=== PATIENT | male | born 1940 | race Hispanic/Latino ===

== ENCOUNTER → 2020-01-22 | Outpatient (CLI) | payer OTHER | END | disposition home or self-care (01) | LOC: RAH 10:56 | PROVIDERS: ATTEND Internal Medicine | DX: Z13.6 Encounter for screening for cardiovascular disorders (principal) | CPT/HCPCS: 75571 ==

== ENCOUNTER → 2020-02-25 | Outpatient (CLI) | payer MEDICARE | END | disposition home or self-care (01) | LOC: SHCH 15:14 | PROVIDERS: ATTEND Internal Medicine Cardiovascular Disease | DX: I48.20 Chronic atrial fibrillation, unspecified (principal) | CPT/HCPCS: 93306; 93356 ==

== ENCOUNTER → 2020-02-27 | Outpatient (CLI) | payer MEDICARE ==
[~2020-02-27] MED LIST: REGADENOSON 0.4 MG/5 ML PF SYG IVP SCH
== END | disposition home or self-care (01) ==
LOC: SHCH 07:57
PROVIDERS: ATTEND Internal Medicine Cardiovascular Disease
DX: I20.9 Angina pectoris, unspecified (principal)
CPT/HCPCS: 78452; 93017; 96374; A9500 ×2; J2785

== ENCOUNTER 2020-09-30 00:19 | Observation (INO) | payer MEDICARE ==
[~2020-09-30] VITALS: Ht 175.3 cm; Wt 78.2 kg
[2020-09-30] MEDS ORDERED: DILTIAZEM HCL 5 MG/ML 10 ML VIAL IV ONE (01:03)
[2020-09-30 01:08] LABS: CREATININE 1.3 mg/dL (0.5-1.5); POTASSIUM 3.7 mmol/L (3.5-5.1)
[2020-09-30 01:11] LABS: BASOPHILS % (AUTO) 0.3 % (0.0-5.0); EOSINOPHILS % (AUTO) 0.1 % (0.0-8.0); HEMATOCRIT 41.6 % (42-54); LYMPHOCYTES % (AUTO) 6.7 % (21.0-51.0); MEAN CORPUSCULAR HGB CONC 34.4 g/dL (32.0-36.0); MEAN CORPUSCULAR VOLUME 96.1 fL (79-99); MONOCYTES % (AUTO) 9.1 % (3.0-13.0); NEUTROPHILS % (AUTO) 83.4 % (40.0-77.0); PLATELET COUNT (AUTO) 222 K/uL (130-400); RED BLOOD CELL COUNT(AUTO) 4.33 MIL/uL (4.50-6.20); RED CELL DISTRIBUTION WIDTH 12.6 % (11.0-15.5); WHITE BLOOD COUNT (AUTO) 17.4 K/uL (4.8-10.8)
[2020-09-30 01:18] LABS: INR 1.06 (0.85-1.15); PARTIAL THROMBOPLASTIN TIME 27.5 SEC (26.3-35.5); PROTHROMBIN TIME 11.4 SEC (9.6-11.6)
[2020-09-30] MEDS ORDERED: METOPROLOL TARTRATE 50 MG TAB ONE ×2 (01:58→08:01)
[2020-09-30] MEDS ORDERED: DILTIAZEM HCL 125 MG/25 ML VIAL IV ONE (02:12)
[2020-09-30] MEDS ORDERED: SODIUM CHLORIDE 0.9% 100 ML IV ONE (02:12)
[2020-09-30] MEDS ORDERED: LACTULOSE 20 GM/30 ML UDCUP PO PRN ×2 (02:45→08:45)
[2020-09-30] MEDS ORDERED: ZOLPIDEM TARTRATE 5 MG TAB PO PRN (02:45)
[2020-09-30] MEDS ORDERED: ACETAMINOPHEN-CODEINE 300/30MG TAB PO PRN ×2 (02:45)
[2020-09-30] MEDS ORDERED: ONDANSETRON HCL 4 MG/2 ML VIAL IV PRN ×2 (02:45→08:45)
[2020-09-30] MEDS ORDERED: HYDRALAZINE HCL 20 MG/ML VIAL IV PRN (02:45)
[2020-09-30] MEDS ORDERED: DIPHENHYDRAMINE HCL 25 MG CAPSULE PO PRN ×2 (02:45→08:45)
[2020-09-30] MEDS ORDERED: NITROGLYCERIN 0.4 MG SL TAB SL PRN (02:45)
[2020-09-30] MEDS ORDERED: ACETAMINOPHEN 325 MG TAB PO PRN ×4 (02:45→08:45)
[2020-09-30] MEDS ORDERED: DILTIAZEM HCL 125 MG/25 ML 125 MG in SODIUM CHLORIDE 0.9% 100 ML IV SCH (02:45)
[2020-09-30] MEDS ORDERED: GUAIFENESIN-DM 200/20 MG 10 ML PO PRN (02:45)
[2020-09-30] MEDS ORDERED: MAG HYDROX/AL HYDROX/SIMETH ES 30 ML SUSP UDCUP PO PRN ×2 (02:45→08:45)
[2020-09-30] MEDS ORDERED: ZOSYN 3.375GM+NS 50ML 50 ML IV ONE (03:03)
[2020-09-30] MEDS ORDERED: PHARMACY COMMUNICATION MISC SCH (04:00)
[2020-09-30] MEDS ORDERED: ZOSYN 3.375GM+NS 50ML 50 ML IV SCH (05:00)
[2020-09-30 06:37] LABS: TROPONIN I 0.12 ng/mL (0.00-0.06)
[2020-09-30] MEDS ORDERED: CEFTRIAXONE SODIUM 1 GM ONE (08:01)
[2020-09-30] MEDS ORDERED: SODIUM CHLORIDE 0.9% 1000ML 1,000 ML IV ONE (08:01)
[2020-09-30] MEDS ORDERED: SODIUM CHLORIDE 0.9% 1000ML 1,000 ML IV SCH (08:45)
[2020-09-30] MEDS ORDERED: POTASSIUM CHLORIDE 20MEQ/100ML 100 ML IV PRN ×2 (08:45)
[2020-09-30] MEDS ORDERED: LIDOCAINE HCL-MPF 1% 2ML VIAL IJ PRN ×2 (08:45)
[2020-09-30] MEDS ORDERED: POTASSIUM CHLORIDE 10% ELIXIR 20 MEQ/15 ML UDCUP PO PRN (08:45)
[2020-09-30] MEDS ORDERED: DiphenhydrAMINE HCL 50 MG/ML VIAL IV PRN (08:45)
[2020-09-30] MEDS ORDERED: POTASSIUM CHLORIDE 20 MEQ ERTAB PO PRN (08:45)
[2020-09-30] MEDS ORDERED: ENOXAPARIN SODIUM 80 MG/0.8 ML SQ SCH (09:00)
[2020-09-30] MEDS: METOPROLOL TARTRATE 25 MG TAB PO SCH ×2 (09:00→20:26)
[2020-09-30] MEDS ORDERED: ENOXAPARIN SODIUM 40 MG/0.4 ML SYRINGE SQ SCH (09:00)
[2020-09-30] MEDS: PANTOPRAZOLE SODIUM 40 MG TABLET.DR PO SCH (09:00)
[2020-09-30] MEDS ORDERED: FAMOTIDINE 20MG TAB 20 MG TAB PO SCH (09:00)
[2020-09-30] MEDS ORDERED: ATOR40TA71 PO (09:23)
[2020-09-30] MEDS ORDERED: METO50TA18 PO (09:23)
[2020-09-30] MEDS ORDERED: APIX5TAB PO (09:23)
[2020-09-30] MEDS: CEFTRIAXONE SODIUM 1 GM IVP SCH (09:30)
[2020-09-30] MEDS: ATORVASTATIN CALCIUM 40 MG TABLET PO SCH (09:45)
[2020-09-30 11:02] LABS: TROPONIN I 0.23 ng/mL (0.00-0.06)
[2020-09-30 15:50] VITALS: BP 134/70
--- NOTE | 2020-09-30 16:00 | NUR ---
ARRIVAL TO FLOOR AAOX3 DENIES CP DENIES SOB DENIES NV ARRIVED WITH ORDERS. TELE PACK PLACED ON PATIENT. RESTING IN BED. CALL LIGHT WITHIN REACH.
--- NOTE | 2020-09-30 16:15 | NUR ---
NOTED BANDAIDS TO RIGHT HANDS PATIENT STATES HE PUT THEM ON HIMSELF DAYS AGO, DOESN'T WANT TO TAKE THEM OFF, STATES THEY ARE SCABBED.
--- NOTE | 2020-09-30 16:30 | NUR ---
2D ECHO AT BEDSIDE
[2020-09-30 19:08] LABS: TROPONIN I 0.21 ng/mL (0.00-0.06)
[2020-09-30 19:30] VITALS: BP 131/65
[2020-09-30] MEDS: APIXABAN 5 MG TABLET PO SCH (20:25)
[2020-09-30 23:40] VITALS: BP 135/74
[2020-10-01 03:50] VITALS: BP 144/69
[2020-10-01 06:21] LABS: HEMATOCRIT 38.6 % (42-54); MEAN CORPUSCULAR HEMOGLOBIN 32.3 pg (27.0-33.0); MEAN CORPUSCULAR HGB CONC 33.4 g/dL (32.0-36.0); MEAN CORPUSCULAR VOLUME 96.7 fL (79-99); RED BLOOD CELL COUNT(AUTO) 3.99 MIL/uL (4.50-6.20); RED CELL DISTRIBUTION WIDTH 13.1 % (11.0-15.5); WHITE BLOOD COUNT (AUTO) 13.5 K/uL (4.8-10.8)
[2020-10-01 06:35] LABS: CREATININE 1.2 mg/dL (0.5-1.5); POTASSIUM 3.9 mmol/L (3.5-5.1)
[2020-10-01 08:00] VITALS: BP 151/83
[2020-10-01] MEDS: PANTOPRAZOLE SODIUM 40 MG TABLET.DR PO SCH (08:16)
[2020-10-01] MEDS: ATORVASTATIN CALCIUM 40 MG TABLET PO SCH (08:16)
[2020-10-01] MEDS: METOPROLOL TARTRATE 25 MG TAB PO SCH (08:16)
[2020-10-01] MEDS: APIXABAN 5 MG TABLET PO SCH (08:16)
[2020-10-01] MEDS: CEFTRIAXONE SODIUM 1 GM IVP SCH (08:17)
[2020-10-01] MEDS ORDERED: CEPH500C2 PO (08:44)
[2020-10-01] MEDS ORDERED: METO50TA18 PO (08:44)
--- NOTE | 2020-10-01 11:58 | NUR ---
CM NOTE PATIENT DISCHARGED HOME, GONE, UNABLE TO PROVIDER MIJARES LETTER.
--- NOTE | 2020-10-01 13:00 | NUR ---
DISCHARGE INSTRUCTIONS GIVEN, PIV REMOVED AND INTACT, DISCHARGED HOME TO FAMILY VEHICLE VIA WHEELCHAIR.
== END 2020-10-01 11:22 | disposition home or self-care (01) ==
LOC: EDH 00:19 → EDHIP 02:38 → OBSVTOIN 02:38 → INTOOBSV 02:38 → OBSVTOIN 08:41 → 4CH 16:01
PROVIDERS: ADMIT Internal Medicine; ATTEND Internal Medicine
DX: L03.113 Cellulitis of right upper limb (principal); I48.0 Paroxysmal atrial fibrillation; R07.9 Chest pain, unspecified; I25.10 Atherosclerotic heart disease of native coronary artery without angina pectoris; I21.A1 Myocardial infarction type 2; G47.33 Obstructive sleep apnea (adult) (pediatric); E78.2 Mixed hyperlipidemia; W18.39XA Other fall on same level, initial encounter; Y93.89 Activity, other specified; Y92.89 Other specified places as the place of occurrence of the external cause; Y99.8 Other external cause status; Z85.46 Personal history of malignant neoplasm of prostate; Z79.01 Long term (current) use of anticoagulants
CPT/HCPCS: 36415 ×2; 70450; 71045; 73110; 73130; 80048 ×2; 82550 ×4; 83874 ×3; 84443; 84484 ×4; 85025; 85027; 85610; 85651; 85730; 93005 ×3; 93306; 93356; 96374; 99291; 99292; G0378 ×3; J0696 ×2; J2543; J3490 ×2; J7030

== ENCOUNTER 2021-10-08 09:44 | Observation (INO) | payer MEDICARE ==
[~2021-10-08] VITALS: Ht 165.1 cm; Wt 4.1 kg
[~2021-10-08 09:44] MED LIST changes: +APIX5TAB PO; +ATOR40TA71 PO; +CEPH500C2 PO; +METO50TA18 PO; -REGADENOSON 0.4 MG/5 ML PF SYG IVP SCH
[2021-10-08 11:59] LABS: BASOPHILS % (AUTO) 0.5 % (0.0-5.0); EOSINOPHILS % (AUTO) 0.4 % (0.0-8.0); HEMATOCRIT 44.5 % (42-54); LYMPHOCYTES % (AUTO) 8.8 % (21.0-51.0); MEAN CORPUSCULAR HEMOGLOBIN 32.9 pg (27.0-33.0); MEAN CORPUSCULAR HGB CONC 33.9 g/dL (32.0-36.0); MEAN CORPUSCULAR VOLUME 96.9 fL (79-99); NEUTROPHILS % (AUTO) 83.8 % (40.0-77.0); PLATELET COUNT (AUTO) 224 K/uL (130-400); RED BLOOD CELL COUNT(AUTO) 4.59 MIL/uL (4.50-6.20); RED CELL DISTRIBUTION WIDTH 13.2 % (11.0-15.5); WHITE BLOOD COUNT (AUTO) 15.1 K/uL (4.8-10.8)
[2021-10-08 12:13] LABS: INR 1.09 (0.85-1.15); PROTHROMBIN TIME 11.8 SEC (9.6-11.6)
[2021-10-08 12:14] LABS: CREATININE 1.1 mg/dL (0.5-1.5); POTASSIUM 5.7 mmol/L (3.5-5.1)
[2021-10-08 12:19] LABS: ALBUMIN 3.8 g/dL (3.5-5.0); BILIRUBIN,TOTAL 0.8 mg/dL (0.2-1.0); MAGNESIUM 2.5 mg/dL (1.80-2.40); TOTAL PROTEIN, SERUM 7.6 g/dL (6.0-8.3)
[2021-10-08 14:11] LABS: APPEARANCE,URINE Clear (CLEAR); BILIRUBIN,URINE Negative (NEGATIVE); COLOR,URINE Yellow (YELLOW); GLUCOSE, URINE (UA) Negative (NEGATIVE); KETONES,URINE Negative (NEGATIVE); LEUKOCYTE ESTERASE ,URINE Negative (NEGATIVE); NITRATE,URINE Negative (NEGATIVE); OCCULT BLOOD,URINE Negative (NEGATIVE); PH,URINE >=9.0 (5.0-8.0); PROTEIN,URINE Negative (NEGATIVE); UROBILINOGEN,URINE 0.2 mg/dL (0.2-1.0)
[2021-10-08 14:38] LABS: BACTERIA,URINE Rare /HPF (None Seen); RBC,URINE 0-1 /HPF (0-1); SQUAMOUS EPITHELIAL CELL,UR Rare /HPF (0-2)
[2021-10-08] MEDS ORDERED: BACITRACIN 28.4 GM OINT TP SCH (16:30)
[2021-10-08] MEDS ORDERED: ONDANSETRON ODT 4MG TAB PO PRN (16:30)
[2021-10-08] MEDS ORDERED: ACETAMINOPHEN 325 MG TAB PO PRN ×3 (16:30→21:00)
[2021-10-08] MEDS: 0.9%NACL 1000ML 1,000 ML IV SCH ×2 (17:10→23:28)
[2021-10-08] MEDS ORDERED: ATOR20TA65 PO (20:57)
[2021-10-08] MEDS ORDERED: APIX5TAB PO (20:57)
[2021-10-08] MEDS ORDERED: LOSA25TA41 PO (20:57)
[2021-10-08] MEDS ORDERED: METO25TA6 PO (20:57)
[2021-10-08] MEDS ORDERED: DiphenhydrAMINE HCL 50 MG/ML VIAL IV PRN (21:00)
[2021-10-08] MEDS ORDERED: ONDANSETRON 4MG INJ IV PRN (21:00)
[2021-10-08] MEDS ORDERED: LACTULOSE 20 GM/30 ML UDCUP PO PRN (21:00)
[2021-10-08] MEDS ORDERED: MAG/ALUM/SIMETH 30 ML UDCUP PO PRN (21:00)
[2021-10-08] MEDS ORDERED: DIPHENHYDRAMINE HCL 25 MG CAPSULE PO PRN (21:00)
[2021-10-08 23:00] VITALS: BP 155/69
[2021-10-09 04:00] VITALS: BP 126/68
[2021-10-09 05:30] LABS: HEMATOCRIT 39.8 % (42-54); MEAN CORPUSCULAR HGB CONC 33.2 g/dL (32.0-36.0); MEAN CORPUSCULAR VOLUME 96.4 fL (79-99); RED BLOOD CELL COUNT(AUTO) 4.13 MIL/uL (4.50-6.20); RED CELL DISTRIBUTION WIDTH 13.3 % (11.0-15.5); WHITE BLOOD COUNT (AUTO) 10.2 K/uL (4.8-10.8)
[2021-10-09 05:45] LABS: CREATININE 1.1 mg/dL (0.5-1.5); POTASSIUM 4.3 mmol/L (3.5-5.1)
[2021-10-09 08:00] VITALS: BP 117/69
[2021-10-09] MEDS ORDERED: APIXABAN 5 MG TABLET PO SCH (09:00)
[2021-10-09] MEDS ORDERED: METOPROLOL TARTRATE 25 MG TAB PO SCH (09:00)
[2021-10-09] MEDS ORDERED: FAMOTIDINE 20MG TAB PO SCH (09:00)
[2021-10-09] MEDS ORDERED: LOSA25TA41 PO (10:19)
[2021-10-09] MEDS ORDERED: METO25TA6 PO (10:19)
[2021-10-09 12:00] VITALS: BP 161/71
[2021-10-09] MEDS ORDERED: ATORVASTATIN 20 MG TABLET PO SCH (21:00)
== END 2021-10-09 15:30 | disposition home or self-care (01) ==
LOC: EDH 09:44 → EDHIP 15:10 → 3DH 23:06
PROVIDERS: ADMIT Internal Medicine; ATTEND Internal Medicine
DX: S00.81XA Abrasion of other part of head, initial encounter (principal); R55 Syncope and collapse; I25.10 Atherosclerotic heart disease of native coronary artery without angina pectoris; I48.0 Paroxysmal atrial fibrillation; D68.69 Other thrombophilia; I12.9 Hypertensive chronic kidney disease with stage 1 through stage 4 chronic kidney disease, or unspecified chronic kidney disease; N18.2 Chronic kidney disease, stage 2 (mild); C61 Malignant neoplasm of prostate; E78.5 Hyperlipidemia, unspecified; H91.90 Unspecified hearing loss, unspecified ear; G47.33 Obstructive sleep apnea (adult) (pediatric); M47.812 Spondylosis without myelopathy or radiculopathy, cervical region; M47.815 Spondylosis without myelopathy or radiculopathy, thoracolumbar region; K42.9 Umbilical hernia without obstruction or gangrene; K57.90 Diverticulosis of intestine, part unspecified, without perforation or abscess without bleeding; V18.4XXA Pedal cycle driver injured in noncollision transport accident in traffic accident, initial encounter; Y93.55 Activity, bike riding; Y92.410 Unspecified street and highway as the place of occurrence of the external cause; Z79.899 Other long term (current) drug therapy; Z79.01 Long term (current) use of anticoagulants; Z89.021 Acquired absence of right finger(s)
CPT/HCPCS: 36415 ×2; 70460; 71250; 72125; 74176; 80048; 80053; 81001; 81003; 82550; 83735; 84484; 85025; 85027; 85610; 85730; 93005; 96360; 96361 ×2; 97039; 97116; 99285; G0378 ×18

== ENCOUNTER 2022-03-11 12:10 | Emergency (ER) | payer MEDICARE ==
[~2022-03-11] VITALS: Ht 175.3 cm; Wt 72.6 kg
[~2022-03-11 12:10] MED LIST changes: +ATOR20TA65 PO; -ATOR40TA71 PO; -CEPH500C2 PO; +LOSA25TA41 PO; +METO25TA6 PO; -METO50TA18 PO
[2022-03-11 12:28] LABS: EOSINOPHILS % (AUTO) 1.4 % (0.0-8.0); HEMATOCRIT 44.7 % (42-54); LYMPHOCYTES % (AUTO) 28.4 % (21.0-51.0); MEAN CORPUSCULAR HEMOGLOBIN 32.2 pg (27.0-33.0); MEAN CORPUSCULAR HGB CONC 33.3 g/dL (32.0-36.0); MEAN CORPUSCULAR VOLUME 96.5 fL (79-99); MONOCYTES % (AUTO) 8.5 % (3.0-13.0); NEUTROPHILS % (AUTO) 60.4 % (40.0-77.0); PLATELET COUNT (AUTO) 256 K/uL (130-400); RED BLOOD CELL COUNT(AUTO) 4.63 MIL/uL (4.50-6.20); RED CELL DISTRIBUTION WIDTH 12.8 % (11.0-15.5); WHITE BLOOD COUNT (AUTO) 12.4 K/uL (4.8-10.8)
[2022-03-11] MEDS ORDERED: ONDANSETRON 4MG INJ IVP ONE (12:30)
[2022-03-11] MEDS ORDERED: 0.9%NACL 1000ML 1,000 ML IV ONE (12:30)
[2022-03-11 12:35] LABS: CREATININE 1.5 mg/dL (0.5-1.5); POTASSIUM 4.4 mmol/L (3.5-5.1)
[2022-03-11 12:39] LABS: ALBUMIN 3.5 g/dL (3.5-5.0); BILIRUBIN,TOTAL 0.9 mg/dL (0.2-1.0); TOTAL PROTEIN, SERUM 6.8 g/dL (6.0-8.3)
[2022-03-11 12:40] LABS: B-TYPE NATRIURETIC PEPTIDE 185 pg/mL (0-100)
[2022-03-11] MEDS ORDERED: NITR0.4T50 SL (13:11)
[2022-03-11 14:10] LABS: APPEARANCE,URINE Clear (CLEAR); BILIRUBIN,URINE Negative (NEGATIVE); COLOR,URINE Dark Yellow (YELLOW); GLUCOSE, URINE (UA) Negative (NEGATIVE); KETONES,URINE 15 mg/dL (NEGATIVE); LEUKOCYTE ESTERASE ,URINE Trace (NEGATIVE); NITRATE,URINE Negative (NEGATIVE); OCCULT BLOOD,URINE Negative (NEGATIVE); PH,URINE 6.5 (5.0-8.0); PROTEIN,URINE POS 1+ mg/dL (NEGATIVE)
[2022-03-11 15:04] LABS: BACTERIA,URINE Few /HPF (None Seen); MUCUS,URINE Moderate LPF (None Seen); RBC,URINE 0-1 /HPF (0-1); SQUAMOUS EPITHELIAL CELL,UR Rare /HPF (0-2)
[2022-03-11 15:18] VITALS: BP 122/72
== END 2022-03-11 15:17 | disposition home or self-care (01) ==
LOC: EDH 12:10
DX: T67.5XXA Heat exhaustion, unspecified, initial encounter (principal); E86.0 Dehydration; R55 Syncope and collapse; X58.XXXA Exposure to other specified factors, initial encounter; Y93.89 Activity, other specified; Y92.89 Other specified places as the place of occurrence of the external cause; Y99.8 Other external cause status
CPT/HCPCS: 36415; 70450; 71045; 80053; 81001; 83880; 84484; 85025; 87804 ×2; 93005; 96374; 99285; J2405; J7030

== ENCOUNTER → 2022-09-07 | Outpatient (CLI) | payer MEDICARE ==
[~2022-09-07] MED LIST changes: +NITR0.4T50 SL
== END | disposition home or self-care (01) ==
LOC: RAH 10:49
PROVIDERS: ATTEND Internal Medicine
DX: K21.9 Gastro-esophageal reflux disease without esophagitis (principal); R13.10 Dysphagia, unspecified
CPT/HCPCS: 74230; 92611

== ENCOUNTER → 2022-11-09 | Outpatient (CLI) | payer MEDICARE, OTHER, SELFPAY | END | disposition home or self-care (01) | LOC: RAH 08:39 | PROVIDERS: ATTEND Internal Medicine | DX: R13.10 Dysphagia, unspecified (principal); K57.10 Diverticulosis of small intestine without perforation or abscess without bleeding | CPT/HCPCS: 74240 ==

== ENCOUNTER → 2022-12-26 | Outpatient (CLI) | payer MEDICARE | END | disposition home or self-care (01) | LOC: RAH 12:45 | PROVIDERS: ATTEND Internal Medicine Gastroenterology | DX: R13.12 Dysphagia, oropharyngeal phase (principal); R63.30 Feeding difficulties, unspecified | CPT/HCPCS: 74230; 92611 ==

== ENCOUNTER → 2023-10-02 | Outpatient (CLI) | payer MEDICARE ==
[2023-10-02 16:39] LABS: CREATININE 1.3 mg/dL (0.5-1.5)
== END | disposition home or self-care (01) ==
LOC: LAB 13:15
PROVIDERS: ATTEND Internal Medicine Cardiovascular Disease
DX: I25.10 Atherosclerotic heart disease of native coronary artery without angina pectoris (principal)
CPT/HCPCS: 36415; 80048

== ENCOUNTER → 2024-03-10 | Outpatient (CLI) | payer MEDICARE ==
[2024-03-10 22:15] VITALS: PULSE 67; RESP 10
[2024-03-10 22:36] VITALS: PULSE 67; RESP 12
[2024-03-10 23:08] VITALS: PULSE 62; RESP 12
[2024-03-10 23:33] VITALS: PULSE 62; RESP 12
[2024-03-11] VITALS (11 sets, daily range): PULSE 54–94; RESP 12–14
== END | disposition home or self-care (01) ==
LOC: SLP 20:21
PROVIDERS: ATTEND Internal Medicine Cardiovascular Disease
DX: G47.30 Sleep apnea, unspecified (principal); R06.83 Snoring
CPT/HCPCS: 95810

== ENCOUNTER → 2024-03-23 | Outpatient (CLI) | payer MEDICARE ==
[2024-03-23 22:24] VITALS: PULSE 52; RESP 14
[2024-03-23 23:00] VITALS: PULSE 52; RESP 12
[2024-03-23 23:30] VITALS: PULSE 54; RESP 12
[2024-03-24] VITALS (11 sets, daily range): PULSE 48–56; RESP 12–16
== END | disposition home or self-care (01) ==
LOC: CANPRECLI → SLP 20:15
PROVIDERS: ATTEND Internal Medicine Cardiovascular Disease
DX: G47.33 Obstructive sleep apnea (adult) (pediatric) (principal)
CPT/HCPCS: 95811